=== PATIENT | female | born 1995 | race African-American/Black ===

== ENCOUNTER 2020-04-17 11:23 | Emergency (ER) | payer BC, SELFPAY ==
[2020-04-17 11:46] VITALS: BP 107/60; PULSE 69; RESP 16; TEMP 37.4; O2SAT 97
--- NOTE | 2020-04-17 12:19 | ED.FEMALEGU ---
HPI - Female Genitourinary General Chief complaint: Urogenital-Female Stated complaint: test Time Seen by Provider: 04/17/20 12:14 Source: patient and RN notes reviewed Mode of arrival: ambulatory Limitations: no limitations History of Present Illness HPI Narrative: Patient presents today requesting a urine test. Patient's last period was on 03/18/2020. She has had 2+ home test, but needs a confirmatory test and a clinic so she can make an appointment at the high risk clinic at [facility] [place]. With this , she will be a and states she has had multiple miscarriages due to her sickle cell anemia. Denies abdominal pain or vaginal bleeding. MD elicited complaint: other ( confirmation) Related Data Allergies Allergy/AdvReac Type Severity Reaction Status Date / Time codeine Allergy Unknown Unknown Verified 03/19/18 15:05 morphine Allergy Unknown Unknown Verified 03/19/18 15:05 Review of Systems Review of Systems: Narrative: CONSTITUTIONAL: Denies body aches, fever, chills, or sweats. EYES: Denies visual changes, redness, or discharge. ENT: Denies rhinorrhea, congestion, sore throat, or otalgia. CARDIOVASCULAR: Denies chest pain, palpitations, or edema. RESPIRATORY: Denies cough or dyspnea. GASTROINTESTINAL: Denies abdominal pain, nausea, vomiting, or diarrhea. GENITOURINARY: Denies dysuria or hematuria. Denies vaginal bleeding or abnormal vaginal discharge. SKIN: Denies rash, itching, or wounds. MUSCULOSKELETAL: Denies back pain, joint pain, or myalgia. NEUROLOGIC: Denies headache, numbness, tingling, or weakness. PSYCH: Denies depression or anxiety. [facility] Past Medical History Medical History (Updated 04/17/20 @ 12:20 by Shweta Oseguera, [facility], ) Sickle cell anemia Social History Social History Gender identity (if verbalized by the patient): Female Exam Narrative: Exam Narrative: GENERAL: Well-appearing, well-nourished, and in no acute distress. HEAD: Normocephalic, atraumatic. EYES: EOMI. No redness or drainage. Conjunctivae normal. ENT: Mucous membranes pink and moist. NECK: Normal AROM. CHEST: No respiratory distress. Clear to auscultation. HEART: Regular rate and rhythm. No murmur appreciated. Normal peripheral pulses. ABDOMEN: Soft, nontender, nondistended, normal active bowel sounds. MUSCULOSKELETAL: No bony tenderness. EXTREMITIES: Normal range of motion. No edema. SKIN: Warm, dry, no rash. Capillary refill normal. Normal skin turgor. NEURO: No focal deficits. Alert and oriented x3. Gait steady. PSYCH: Normal affect. No signs of depression or anxiety. Course Vital Signs Vital signs: Vital Signs Temperature 99.4 F 04/17/20 11:46 Pulse Rate 69 04/17/20 11:46 Respiratory Rate 16 04/17/20 11:46 Blood Pressure 107/60 04/17/20 11:46 Pulse Oximetry 97 04/17/20 11:46 Temperature 99.4 F 04/17/20 11:46 Pulse Rate 69 04/17/20 11:46 Respiratory Rate 16 04/17/20 11:46 Blood Pressure 107/60 04/17/20 11:46 Pulse Oximetry 97 04/17/20 11:46 Reviewed MDM - Female Genitourinary Differential Diagnosis Differential diagnosis: Likely other (, miscarriage) Lab Data Attestation: I reviewed the patient's lab results. Labs: UCG Bedside Result Positive Reference Range: Negative UCG Bedside Result Positive Reference Range: Negative UCG Bedside Result Positive Reference Range: Negative Critical Care Time Critical Care Time Critical Care Time: No Discharge Plan Discharge Clinical Impression: Visit for confirmation of test result with physical exam Patient Disposition: Home, Self-Care Condition: Stable Additional Instructions: Your urine test is positive today. Please follow up with [facility] senior financial analyst as soon as possible to initiate your care. As discussed, please go to the ER immediately with any severe
== END 2020-04-17 12:23 | disposition home or self-care (01) ==
PROVIDERS: Emergency Provider Nurse Practitioner
DX: Z32.01 Encounter for pregnancy test, result positive (principal); O99.019 Anemia complicating pregnancy, unspecified trimester; Z3A.00 Weeks of gestation of pregnancy not specified
CPT/HCPCS: 81025; 99213; G0463

== ENCOUNTER 2020-08-27 08:31 | Emergency (ER) | payer BC, SELFPAY ==
[2020-08-27 08:39] VITALS: BP 94/50; PULSE 92; RESP 16; TEMP 36.6; O2SAT 95
--- NOTE | 2020-08-27 08:55 | ED.URI ---
HPI - URI/Sore Throat General Chief Complaint: Upper Respiratory Infection Stated Complaint: Face swelling Source: patient Mode of arrival: ambulatory Limitations: no limitations History of Present Illness HPI Narrative: Patient is a 25-year-old female who presents complaining of facial pressure, headache, sinus drainage and sore throat times for approximately 5 days. Patient is a temperature screener for Covid. She reports being tested approximately 2 weeks ago that was negative. She denies fever or shortness of breath. Reports slight cough. Patient has a history of sickle cell anemia and is approximately 17 weeks at this time. She denies taking [id number] medications for symptoms, but reports taking vitamins daily. MD elicited complaint: sore throat Related Data Home Medications Medication Instructions Recorded Confirmed aspirin [Adult Low Dose Aspirin] 81 mg PO DAILY 08/27/20 08/27/20 [id number] fum-folic ac-om3 pkg PO 08/27/20 [Daily ] Allergies Allergy/AdvReac Type Severity Reaction Status Date / Time codeine Allergy Unknown Unknown Verified 08/27/20 08:59 morphine Allergy Unknown Unknown Verified 08/27/20 08:59 Review of Systems Review of Systems: Narrative: CONSTITUTIONAL: Denies fever, chills, or sweats. EYES: Denies visual changes, redness, or discharge. ENT: Reports rhinorrhea, intermittent congestion, and sore throat. CARDIOVASCULAR: Denies chest pain, palpitations, or edema. RESPIRATORY: Reports slight cough, denies dyspnea. GASTROINTESTINAL: Denies abdominal pain, nausea, vomiting, or diarrhea. GENITOURINARY: Denies dysuria or hematuria. SKIN: Denies rash or itching. MUSCULOSKELETAL: Denies back pain, joint pain, or myalgia. NEUROLOGIC: Reports headache, denies numbness, dizziness, or weakness. PSYCHIATRIC: Denies anxiety or depression. [facility] Past Medical History Medical History (Updated 08/27/20 @ 09:16 by CRISTAL Claudio) Sickle cell anemia Surgical History Surgical History (Updated 08/27/20 @ 08:57 by CRISTAL Claudio) No significant past surgical history Social History Social History (Updated 08/27/20 @ 08:57 by CRISTAL Claudio) Smoking status: Never smoker Alcohol intake: current Alcohol use details: occasional Substance use: never Gender identity (if verbalized by the patient): Female Exam Narrative: Exam Narrative: GENERAL: Well-appearing, well-nourished, and in no acute distress. HEAD: Normocephalic, atraumatic. EYES No redness or drainage. Conjunctiva are normal. ENT: Mucous membranes pink and moist. Nares clear. Throat mild erythema, no exudate l. Uvula midline. NECK: AROM. Supple. No lymphadenopathy. CHEST: No respiratory distress. HEART: Regular rate and rhythm. EXTREMITIES: Normal range of motion. SKIN: Warm, dry, no rash. NEURO: No focal deficits. Alert and oriented x3. Gait steady. PSYCH: Normal affect. No signs of depression or anxiety. Course Vital Signs Vital signs: Vital Signs Temperature 36.6 C 08/27/20 08:39 Pulse Rate 92 08/27/20 08:39 Respiratory Rate 16 08/27/20 08:39 Blood Pressure 94/50 L 08/27/20 08:39 Pulse Oximetry 95 08/27/20 08:39 Temperature 36.6 C 08/27/20 08:39 Pulse Rate 92 08/27/20 08:39 Respiratory Rate 16 08/27/20 08:39 Blood Pressure 94/50 L 08/27/20 08:39 Pulse Oximetry 95 08/27/20 08:39 Reviewed. Patient has been instructed to follow-up with her PCP regarding her blood pressure. MDM - URI/Sore Throat MDM Narrative Medical decision making narrative: Patient's rapid strep is negative at this time. Discussed with patient risk factors for Covid related to her job and temperature screening. Patient requesting Covid testing. Patient to be sent for Covid testing at this time. Educated patient that if she develops chest pain or shortness of breath, that she needs to go to the emergency department immediately. Patient is stab
== END 2020-08-27 09:19 | disposition home or self-care (01) ==
PROVIDERS: Emergency Provider Nurse Practitioner
DX: O99.512 Diseases of the respiratory system complicating pregnancy, second trimester (principal); Z3A.17 17 weeks gestation of pregnancy; J06.9 Acute upper respiratory infection, unspecified; Z20.828 Contact with and (suspected) exposure to other viral communicable diseases; O99.012 Anemia complicating pregnancy, second trimester; Z79.82 Long term (current) use of aspirin
CPT/HCPCS: 87081; 87880; 99213; G0463

== ENCOUNTER 2021-11-11 14:52 | Emergency (ER) | payer BC, SELFPAY ==
[2021-11-11 14:59] VITALS: BP 105/61; PULSE 72; RESP 18; TEMP 37.1; O2SAT 93
--- NOTE | 2021-11-11 16:01 | ED.GENADULT ---
HPI - General Adult General Chief complaint: Urogenital-Female Stated complaint: poss uti Source: patient Mode of arrival: ambulatory Limitations: no limitations History of Present Illness HPI narrative: Patient presents for evaluation of urinary symptoms for the last few days. Symptoms include urinary frequency, urgency, dysuria. She has had some lower back pain bilaterally. No fever, chills, nausea or vomiting. She thinks she has a urinary tract infection. She states she did have chlamydia and gonorrhea in the past. She states she had similar symptoms in July of 2021 and had chlamydia at that time. Both she and her partner were treated at that time. She is still with that same male partner. She does not believe he is symptomatic. She is currently . Related Data Home Medications Medication Instructions Recorded Confirmed aspirin [Adult Low Dose Aspirin] 81 mg PO DAILY 08/27/20 08/27/20 [id number] fum-folic ac-om3 pkg PO 08/27/20 [Daily ] Allergies Allergy/AdvReac Type Severity Reaction Status Date / Time codeine Allergy Unknown Unknown Verified 08/27/20 08:59 morphine Allergy Unknown Unknown Verified 08/27/20 08:59 Review of Systems Review of Systems: CONSTITUTIONAL: Denies fever, chills, or sweats. EYES: Denies visual changes, redness, or discharge. ENT: Denies rhinorrhea, congestion, sore throat, or otalgia. CARDIOVASCULAR: Denies chest pain, palpitations, or edema. RESPIRATORY: Denies cough or dyspnea. GASTROINTESTINAL:Denies abdominal pain, nausea, vomiting, or diarrhea. GENITOURINARY: Reports urinary frequency, urgency, dysuria and foul smell SKIN: Denies rash or itching. MUSCULOSKELETAL: Reports low back pain. Denies joint pain, or myalgia. NEUROLOGIC: Denies headache, numbness, dizziness, or weakness. PSYCHIATRIC: Denies anxiety or depression. [facility] Past Medical History Medical History Sickle cell anemia Surgical History Surgical History No significant past surgical history Family History Family History Mother Family history non-contributory Social History Social History Smoking status: Never smoker Alcohol intake: current Alcohol use details: occasional Substance use: never Living arrangements: with family Additional living arrangements comments: Lives with fiance Gender identity (if verbalized by the patient): Female Sexual Orientation (if Verbalized by the Patient): Straight or Heterosexual Spiritual care concerns: No Exam Narrative: GENERAL: Well-appearing, well-nourished, and in no acute distress. HEAD: Normocephalic, atraumatic. EYES: PERRLA and EOMI. ENT: Nares clear, no rhinorrhea or epistaxis. Mucous membranes moist. Oropharynx without tonsillar hypertrophy exudate or other lesions. Bilateral TMs pearly armstrong nonbulging NECK: Supple. No adenopathy or masses. No carotid bruits or JVD CHEST: Clear to auscultation. No respiratory distress. No wheezes rales or rhonchi HEART: Regular rate and rhythm. No murmur heard. Normal peripheral pulses. ABDOMEN: Soft, suprapubic tenderness without rebound or guarding. Abdomen is nondistended, normal active bowel sounds. GENITAL: No external genital lesions. No adnexal tenderness. No cervical motion tenderness. There is small to moderate amount of thick white clumpy drainage in vaginal vault EXTREMITIES: Normal range of motion. No edema. SKIN: Warm, dry, no rash. NEURO: No focal deficits. Alert and oriented x3. PSYCH: Normal mood and affect. Course Course Emergency Course: This is a 26-year-old female who presented with urinary symptoms that she was concerned were related to UTI. No evidence of such. I reviewed these findings with her and she was a
[2021-11-11] MEDS: AZITHROMYCIN 250 MG TABLET 1000 MG PO (16:28)
[2021-11-11] MEDS: cefTRIAXone 500 MG VIAL IM (16:29)
== END 2021-11-11 16:50 | disposition home or self-care (01) ==
PROVIDERS: Emergency Provider Nurse Practitioner
DX: N76.0 Acute vaginitis (principal); D57.1 Sickle-cell disease without crisis; Z79.82 Long term (current) use of aspirin
CPT/HCPCS: 81003; 81025; 87070; 87077; 87086; 87186; 87491; 87591; 87661; 96372; 99214; A9270; G0463; J0696

== ENCOUNTER 2022-06-03 11:28 | Emergency (ER) | payer BC, SELFPAY ==
[2022-06-03 11:28] VITALS: BP 110/55; PULSE 72; RESP 16; TEMP 36.3; O2SAT 97
--- NOTE | 2022-06-03 11:37 | ED.FEMALEGU ---
HPI - Female Genitourinary General Chief complaint: Urogenital-Female Stated complaint: poss uti Time Seen by Provider: 06/03/22 11:37 Source: patient and RN notes reviewed History of Present Illness HPI Narrative: Patient is a 26-year-old female who presents the urgent care with complaints of possible UTI due to urinary frequency, urgency and odor. Patient states is been ongoing for approximately 1 week and she has been taking Azo [id number] with her last dose at 7 AM. Patient states she was last treated for a possible UTI by her oncologist with a televisit in March or April. Denies of any concern for STI. States that her last period was the beginning of this month. denies any fever, abdominal pain, nausea, vomiting. No other acute complaints. No acute distress noted. Patient aware of the plan of care. Some parts of this dictation were generated by voice recognition software and may contain typographical and/or grammatical inaccuracies. Related Data Home Medications Medication Instructions Recorded Confirmed aspirin 81 mg tablet 81 mg PO DAILY 08/27/20 08/27/20 folic acid 1 mg tablet 1 mg PO DAILY 06/03/22 06/03/22 hydrocodone 5 mg-acetaminophen 325 1 tablet PO PRN PRN Pain 06/03/22 06/03/22 mg tablet Allergies Allergy/AdvReac Type Severity Reaction Status Date / Time codeine Allergy Unknown Unknown Verified 06/03/22 11:41 morphine Allergy Unknown Unknown Verified 06/03/22 11:41 Review of Systems Review of Systems: CONSTITUTIONAL: Denies fever, chills, or sweats. EYES: Denies visual changes, redness, or discharge. ENT: Denies rhinorrhea, congestion, sore throat, or otalgia. CARDIOVASCULAR: Denies chest pain, palpitations, or edema. RESPIRATORY: Denies cough or dyspnea. GASTROINTESTINAL: Denies abdominal pain, nausea, vomiting, or diarrhea. GENITOURINARY: Reports of urinary frequency, urgency and odor SKIN: Denies rash or itching. MUSCULOSKELETAL: Denies back pain, joint pain, or myalgia. NEUROLOGIC: Denies headache, numbness, or weakness. All other systems reviewed are negative, except as documented in HPI. [facility] Past Medical History Medical History Sickle cell anemia Surgical History Surgical History No significant past surgical history Family History Family History Mother Family history non-contributory Social History Social History Smoking status: Never smoker Alcohol intake: current Alcohol use details: occasional Substance use: never Additional living arrangements comments: Lives with fiance Gender identity (if verbalized by the patient): Female Sexual Orientation (if Verbalized by the Patient): Straight or Heterosexual Spiritual care concerns: No Comments At the time of my signature, I reviewed and agree with the nursing past medical, surgical, social, and family history. There is no relevant family history pertinent to the patient complaint. Exam Narrative: GENERAL: This is a well-nourished, well-developed patient, in no apparent distress. HEAD: normocephalic, atraumatic. EYES: PERRL. Sclera clear/white. Vision is grossly intact. EARS: External ears normal NOSE: External nose normal with no obvious nasal discharge, nares without redness, no rhinorrhea. THROAT: Mucous membranes moist NECK: Neck supple CARDIOVASCULAR: Regular rate and rhythm without murmurs, gallops, or rubs. RESPIRATORY: Clear to auscultation. Breath sounds equal bilaterally. No wheezes, rales, or rhonchi. GASTROINTESTINAL: Abdomen soft, non-tender, nondistended. Bowel sounds are active. SKIN: warm, intact with no suspicious lesions or rash, good texture and turgor. NEURO: awake, alert, and oriented to person, place and time. There were no obvious focal neurologic
== END 2022-06-03 12:02 | disposition home or self-care (01) ==
PROVIDERS: Emergency Provider Nurse Practitioner Family
DX: R35.0 Frequency of micturition (principal); D57.1 Sickle-cell disease without crisis
CPT/HCPCS: 81003; 87077; 87086; 87186; 99213; G0463

== ENCOUNTER 2023-03-13 13:29 | Emergency (ER) | payer BC, SELFPAY ==
--- NOTE | 2023-03-13 13:41 | ED.FEMALEGU ---
HPI - Female Genitourinary General Chief complaint: Urogenital-Female Stated complaint: UTI Time Seen by Provider: 03/13/23 13:41 Source: patient and RN notes reviewed History of Present Illness HPI Narrative: Patient is a 27-year-old female presents to urgent care with complaints of intermittent nausea, dark urine and some abdominal cramping. Patient states her last menstrual cycle was on February 06. States that she has taken 2 doses of a Zosyn symptoms started couple days ago. Patient has not taken a home test. States that she does have a son that is 2 years old and does have a OBGYN. Denies any fever or vomiting. No other acute complaints. No acute distress noted. Patient aware of the plan of care. Some parts of this dictation were generated by voice recognition software and may contain typographical and/or grammatical inaccuracies. Related Data Home Medications Medication Instructions Recorded Confirmed folic acid 1 mg tablet 1 mg PO DAILY 06/03/22 06/03/22 hydrocodone 5 mg-acetaminophen 325 1 tablet PO PRN PRN Pain 06/03/22 06/03/22 mg tablet acyclovir 400 mg tablet mg 03/13/23 hydroxyurea 500 mg capsule 03/13/23 Allergies Allergy/AdvReac Type Severity Reaction Status Date / Time codeine Allergy Unknown Unknown Verified 06/03/22 11:41 morphine Allergy Unknown Unknown Verified 06/03/22 11:41 Review of Systems Review of Systems: CONSTITUTIONAL: Denies fever, chills, or sweats. EYES: Denies visual changes, redness, or discharge. ENT: Denies rhinorrhea, congestion, sore throat, or otalgia. CARDIOVASCULAR: Denies chest pain, palpitations, or edema. RESPIRATORY: Denies cough or dyspnea. GASTROINTESTINAL: Reports of lower abdominal cramping and nausea GENITOURINARY: Reports of cloudy/dark urine, missed menstrual cycle SKIN: Denies rash or itching. MUSCULOSKELETAL: Denies back pain, joint pain, or myalgia. NEUROLOGIC: Denies headache, numbness, or weakness. All other systems reviewed are negative, except as documented in HPI. [facility] Past Medical History Medical History Sickle cell anemia Surgical History Surgical History No significant past surgical history Family History Family History Mother Family history non-contributory Social History Social History Smoking status: Never smoker Alcohol intake: current Alcohol use details: occasional Substance use: never Living arrangements: with family Additional living arrangements comments: Lives with fiance Gender identity (if verbalized by the patient): Female Sexual Orientation (if Verbalized by the Patient): Straight or Heterosexual Spiritual care concerns: No Comments At the time of my signature, I reviewed and agree with the nursing past medical, surgical, social, and family history. There is no relevant family history pertinent to the patient complaint. Exam Narrative: GENERAL: This is a well-nourished, well-developed patient, in no apparent distress. HEAD: normocephalic, atraumatic. EYES: PERRL. Sclera clear/white. Vision is grossly intact. EARS: External ears normal NOSE: External nose normal with no obvious nasal discharge, nares without redness, no rhinorrhea. THROAT: Mucous membranes moist NECK: Neck supple CARDIOVASCULAR: Regular rate and rhythm without murmurs, gallops, or rubs. RESPIRATORY: Clear to auscultation. Breath sounds equal bilaterally. No wheezes, rales, or rhonchi. GASTROINTESTINAL: Abdomen soft, non-tender, nondistended. Bowel sounds are active. SKIN: warm, intact with no suspicious lesions or rash, good texture and turgor. NEURO: awake, alert, and oriented to person, place and time. There were no obvious focal neurologic abnormalities. EXTREMITIES: No cl
[2023-03-13 13:43] VITALS: BP 117/72; PULSE 85; RESP 18; TEMP 36.9; O2SAT 100
[2023-03-13 13:44] VITALS: BP 117/72; PULSE 85; RESP 18; TEMP 36.9; O2SAT 100
== END 2023-03-13 14:09 | disposition home or self-care (01) ==
PROVIDERS: Emergency Provider Nurse Practitioner Family
DX: O23.40 Unspecified infection of urinary tract in pregnancy, unspecified trimester (principal); N39.0 Urinary tract infection, site not specified; B96.20 Unspecified Escherichia coli [E. coli] as the cause of diseases classified elsewhere; Z3A.00 Weeks of gestation of pregnancy not specified
CPT/HCPCS: 81003; 81025; 87077; 87086; 87186; 99213; G0463